=== PATIENT | female | born 1950 | race Two or more races ===

== ENCOUNTER 2019-09-17 20:12 | Emergency (ER) | payer MEDICARE, OTHER ==
[~2019-09-17] VITALS: Ht 152.4 cm; Wt 72.6 kg
[2019-09-17 23:40] VITALS: BP 135/73
[2019-09-18] MEDS ORDERED: ACETAMINOPHEN 500 MG TAB PO ONE (00:15)
[2019-09-18] MEDS ORDERED: IBUPROFEN 600 MG TAB PO ONE (00:15)
== END 2019-09-18 00:42 | disposition home or self-care (01) ==
LOC: ER 20:15
DX: S42.291A Other displaced fracture of upper end of right humerus, initial encounter for closed fracture (principal); Z86.73 Personal history of transient ischemic attack (TIA), and cerebral infarction without residual deficits; W07.XXXA Fall from chair, initial encounter; Y93.89 Activity, other specified; Y92.89 Other specified places as the place of occurrence of the external cause; Y99.8 Other external cause status
CPT/HCPCS: 29105; 73060; 73070